=== PATIENT | female | born 2000 | race Caucasian/White ===

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

== ENCOUNTER 2019-05-24 11:51 | Emergency (ER) | payer OTHER ==
[2019-05-24 12:03] VITALS: BP 129/74
--- NOTE | 2019-05-24 12:14 | UC ---
Throat Pain/Nasal Uziel HPI - HPI Summary HPI Summary: 1. sore throat x 2 days , pain is 5 out of 10 worse with eating, better with Tylenol , no cough , no runny nose, no fever or chills 2. right hand pain x 1 days pain is 6 out of 10 , worse with movement, better with rest and ice, punched the wall with her right fist yesterday no swelling, no bruising - History of Current Complaint Chief Complaint: UCGeneralIllness Stated Complaint: ST Time Seen by Provider: 05/24/19 11:55 Hx Obtained From: Patient Hx Last Menstrual Period: 03/19/18 ?: No Onset/Duration: Sudden Onset, Lasting Days - 1, Still Present Severity: Moderate Pain Intensity: 5 Cough: None Associated Signs & Symptoms: Negative: Drooling, Wheezing, Hoarseness, Sinus Discomfort, Nasal Discharge, Fever, Vomiting, Rash - Allergies/Home Medications Allergies/Adverse Reactions: Allergies Allergy/AdvReac Type Severity Reaction Status Date / Time latex Allergy Blisters Verified 05/24/19 11:57 loratadine Allergy Difficulty Verified 05/24/19 11:57 Breathing CERTAIN ANTIBIOTIC OINTMENTS Allergy Intermediate Swelling Uncoded 05/24/19 11: 57 Home Medications: Home Medications DULoxetine DR CAP* [Cymbalta CAP*] 30 mg PO DAILY 05/24/19 [History Confirmed ] Ibuprofen TAB* [Motrin TAB* 800 MG] 800 mg PO ONCE 05/24/19 [History Confirmed 05/24/19] Testosterone Cypionate 1 dose .ROUTE SEE INSTRUCTIONS 05/24/19 [History Confirmed 05/24/19] busPIRone TAB* [Buspar TAB*] 10 mg PO BID 05/24/19 [History Confirmed 05/24/19] hydrOXYzine HCL TAB* [Atarax 25 MG TAB*] 25 mg PO TID PRN 05/24/19 [History Confirmed 05/24/19] PMH/Surg Hx/FS Hx/Imm Hx Previously Healthy: Yes Respiratory History: Asthma Psychological History: Anxiety, Depression - Surgical History Surgical History: None - Family History Known Family History: Negative: Blood Disorder Family History: NO FAM H/O BLOOD CLOT OR BLEEDING D/O - Social History Alcohol Use: Occasionally Substance Use Type: Marijuana Substance Use Comment - Amount & Last Used: occasional Smoking Status (MU): Light Every Day Tobacco Smoker Type: eCigarettes Amount Used/How Often: vapes Have You Smoked in the Last Year: No - Immunization History Vaccination Up to Date: Yes Review of Systems All Other Systems Reviewed And Are Negative: Yes Constitutional: Negative: Fever, Chills, Fatigue Skin: Negative: Negative Eyes: Negative: Negative ENT: Positive: Sore Throat. Negative: Nasal Discharge Respiratory: Negative: Cough Is Patient Immunocompromised?: No Physical Exam Triage Information Reviewed: Yes Appearance: Well-Appearing, No Pain Distress, Well-Nourished Vital Signs: Initial Vital Signs Temp 99.3 F 05/24/19 11:58 Pulse 97 05/24/19 11:58 Resp 17 05/24/19 11:58 BP 129/74 05/24/19 11:58 Pulse Ox 98 05/24/19 11:58 Vital Signs Reviewed: Yes Eye Exam: Normal Eyes: Positive: Conjunctiva Clear ENT: Positive: Normal ENT inspection, Hearing grossly normal, Pharyngeal erythema, TMs normal. Negative: Nasal congestion, Nasal drainage, Tonsillar swelling, Tonsillar exudate Neck: Positive: Supple, Nontender, No Lymphadenopathy Respiratory: Positive: Chest non-tender, Lungs clear, Normal breath sounds Cardiovascular: Positive: RRR, No Murmur, Pulses Normal Musculoskeletal: Positive: Other: - right hand: no swelling, no bruising, + diffuse tendernss, good ROM decrease strength Diagnostics - Radiology No standard instances Radiology Interpretation Completed By: Radiologist Summary of Radiographic Findings: xray report right hand : REPORT AND IMPRESSION: #. Negative for fracture or malalignment. #. Preserved joint spaces. #. Soft tissue swelling over the dorsum of the hand at the level of the metacarpals and metacarpal phalangeal joints. Throat Pain/Nasal Course/Dx - Differential Dx/Diagnosis Provider Diagnosis: Pharyngitis, Contusion of right hand Discharge ED - Sign-Out/Discharge Documenting (check all that apply): Patient Departure All imaging exams completed and their final reports reviewed: Yes - Discharge Plan Condition: Stable Disposition: HOME Patient Education Materials: Pharyngitis (ED) Referrals: Ranjan Roblero MD [Primary Care Provider] - 7 Days - Billing Disposition and Condition Condition: STABLE Disposition: Home
== END 2019-05-24 12:35 | disposition home or self-care (01) ==
LOC: UCCORT 11:51
DX: S60.221A Contusion of right hand, initial encounter (principal); J02.9 Acute pharyngitis, unspecified; M79.89 Other specified soft tissue disorders; J45.909 Unspecified asthma, uncomplicated; F41.9 Anxiety disorder, unspecified; F32.9 Major depressive disorder, single episode, unspecified; F17.290 Nicotine dependence, other tobacco product, uncomplicated; Z88.0 Allergy status to penicillin; Z88.8 Allergy status to other drugs, medicaments and biological substances; Z91.040 Latex allergy status; W22.01XA Walked into wall, initial encounter; Y92.9 Unspecified place or not applicable
CPT/HCPCS: 99211; G0463